=== PATIENT | female | born 1960 | race Caucasian/White ===

== ENCOUNTER 2018-04-20 18:18 | Emergency (ER) | payer OTHER ==
[~2018-04-20] VITALS: Ht 154.9 cm; Wt 76.4 kg
[2018-04-20 18:28] VITALS: BP 154/94
== END 2018-04-20 20:10 | disposition left against medical advice (07) ==
LOC: EMS 18:19
DX: Z53.21 Procedure and treatment not carried out due to patient leaving prior to being seen by health care provider (principal)